=== PATIENT | female | born 1960 | race Caucasian/White ===

== ENCOUNTER 2017-06-15 05:22 | Emergency (ER) | payer OTHER ==
[~2017-06-15] VITALS: Ht 167.6 cm; Wt 59.0 kg
[2017-06-15] MEDS ORDERED: KETOROLAC TROMETHAMINE 30 MG/ML VIAL IV STA (05:32)
[2017-06-15] MEDS ORDERED: PANTOPRAZOLE 40 MG 10ML VIAL IV STA (05:32)
[2017-06-15] MEDS ORDERED: SODIUM CHLORIDE 0.9% 1000ML 1,000 ML IV STA (05:32)
[2017-06-15] MEDS ORDERED: PROMETHAZINE 25MG/SOD CHL 0.9% 50 ML ONE (05:34)
[2017-06-15] MEDS ORDERED: SODIUM CHLORIDE 0.9% 1000ML 1,000 ML ONE (05:34)
[2017-06-15 05:44] LABS: BASOPHILS # (AUTO) 0.1 (0.0-0.1); BASOPHILS % 0.6 % (0.0-1.0); EOSINOPHILS # (AUTO) 0.1 (0.0-0.4); EOSINOPHILS % 0.7 % (0.0-6.0); HEMATOCRIT 42.9 % (34.2-44.1); HEMOGLOBIN 14.5 g/dL (12.0-16.0); LYMPHOCYTES # (AUTO) 4.6 (1.0-3.2); LYMPHOCYTES % 32.2 % (18.0-39.1); MEAN CORPUSCULAR HGB CONC 33.8 g/dL (31-35); MEAN CORPUSCULAR VOLUME 91.7 fL (81-99); MONOCYTES # (AUTO) 0.7 (0.2-0.8); MONOCYTES % 4.9 % (4.4-11.3); NEUTROPHILS # (AUTO) 8.8 (2.1-6.9); NEUTROPHILS % 61.1 % (38.7-80.0); PLATELET COUNT 227 x10e3/uL (140-360); RED BLOOD COUNT 4.68 x10e6/uL (3.6-5.1); RED CELL DISTRIBUTION WIDTH 12.3 % (11.7-14.4)
[2017-06-15] MEDS ORDERED: PROMETHAZINE 12.5MG/ NACL 0.9% 12.5 MG/50 ML BAG IV ONE (05:45)
[2017-06-15 05:46] LABS: BILIRUBIN,URINE 1+ (NEGATIVE); CLARITY,URINE CLOUDY (CLEAR); COLOR,URINE YELLOW (YELLOW); KETONES,URINE NEGATIVE (NEGATIVE); LEUKOCYTE ESTERASE ,URINE TRACE (NEGATIVE); NITRITE,URINE NEGATIVE (NEGATIVE); URINE UROBILINOGEN 1 mg/dL (0.2 - 1)
[2017-06-15 05:47] LABS: PROTEIN,URINE DIPSTICK 1+ (NEGATIVE)
[2017-06-15 06:00] LABS: BACTERIA,URINE FEW /HPF; EPITHELIAL CELLS,URINE MODERATE /LPF; RBC,URINE 0-5 /HPF (0-5)
[2017-06-15 06:08] LABS: ALANINE AMINOTRANSFERASE 20 IU/L (0-55); ALBUMIN 4.4 g/dL (3.5-5.0); ALBUMIN/GLOBULIN RATIO 1.2 (0.8-2.0); ALKALINE PHOSPHATASE 92 IU/L (40-150); AMYLASE 51 U/L (25-125); ANION GAP 15.4 mmol/L (8-16); BLOOD UREA NITROGEN 28 mg/dL (7-26); BUN/CREATININE RATIO 30 (6-25); CARBON DIOXIDE 21 mmol/L (22-29); CHLORIDE 103 mmol/L (98-107); CREATININE, SERUM 0.94 mg/dL (0.57-1.11); EST GLOMERULAR FILTRATION RATE > 60 ML/MIN (60-); GLUCOSE 140 mg/dL (74-118); LIPASE 15 U/L (8-78); POTASSIUM 3.4 mmol/L (3.5-5.1); SODIUM 136 mmol/L (136-145)
[2017-06-15 06:11] LABS: AMPHETAMINES SCREEN,URINE NEGATIVE (NEGATIVE); BENZODIAZEPINES SCREEN,URINE NEGATIVE (NEGATIVE); PHENCYCLIDINE SCREEN,URINE NEGATIVE (NEGATIVE)
[2017-06-15] MEDS ORDERED: HYDROMORPHONE 1MG/1ML INJ IV STA (06:21)
--- NOTE | 2017-06-15 09:25 | Diagnostic Imaging Report ---
EXAM: CT Abdomen and Pelvis WITH contrast INDICATION: Abdominal pain COMPARISON: None. TECHNIQUE: Abdomen and pelvis were scanned utilizing a multidetector helical scanner from the lung base to the pubic symphysis after administration of contrast. Coronal and sagittal reformations were obtained. Protocol: General survey IV CONTRAST: 100 mL of Isovue 370 ORAL CONTRAST: Water COMPLICATIONS: None RADIATION DOSE: Total Exam DLP: 220.5 mGy*cm. CTDIvol has been reviewed. It is below the limits set by the Radiation Protocol Committee (RPC). FINDINGS: LINES: None. Lower thorax: No parenchymal abnormality. No pneumothorax. No pleural effusion. Liver: No focal mass. No hepatomegaly. Normal parenchyma. The hepatic and portal veins are patent. Gallbladder: Cholecystectomy. Biliary tree: Prominence of the bile ducts likely represents reservoir effect. Spleen: No splenomegaly. No focal mass. Pancreas: Normal parenchymal enhancement. No focal mass. Normal pancreatic duct. No peripancreatic inflammatory changes. Kidneys: No obstructing calculi. No hydronephrosis. No solid enhancing mass. No cysts. No perinephric soft tissue inflammatory changes. Adrenal glands: No adrenal nodules.. Bladder: Normal urinary bladder. Pelvic organs: Normal. GI: No bowel wall thickening. No air-fluid levels. The stomach and small bowel are normal. The colon is normal. No appendix is visualized. A moderate amount of retained feces limits intraluminal evaluation of the colon. Peritoneum/retroperitoneum: No pneumoperitoneum. No ascites. No drainable fluid collection. Lymph nodes: No lymphadenopathy. . Vessels: The abdominal aorta and iliac vessels are patent. The celiac, superior mesenteric, and inferior mesenteric arteries are patent. Single bilateral renal arteries are patent. Atherosclerotic calcifications. Bones: No focal abnormality. Degenerative changes of the lumbar spine. Soft tissues: No focal abnormality. IMPRESSION: No acute abnormality of the abdomen and pelvis. Signed by: Dr. Konrad Ng M.D. on 06/15/2017 9:21 AM
[2017-06-15] MEDS ORDERED: IOPAMIDOL 370 MG/ML 200 ML INFUS..BTL INJ ONE (15:10)
[2017-06-15] MEDS ORDERED: SODIUM CHLORIDE 0.9% 50ML 50 ML ONE (15:10)
== END 2017-06-15 10:28 | disposition home or self-care (01) ==
LOC: ER 05:22
DX: R10.12 Left upper quadrant pain (principal); R11.2 Nausea with vomiting, unspecified; B15.9 Hepatitis A without hepatic coma; M79.7 Fibromyalgia; F32.9 Major depressive disorder, single episode, unspecified; F12.90 Cannabis use, unspecified, uncomplicated
CPT/HCPCS: 36415; 74177; 80053; 80307; 81001; 82150; 83690; 85025; 87086; 96360; 96365; 96374; 96375; 99284; J1170; J1885; J2550; J7030; Q9967